=== PATIENT | male | born 1975 | race Caucasian/White ===

== ENCOUNTER 2019-11-27 11:50 | Emergency (ER) | payer BC, SELFPAY ==
[2019-11-27 12:14] VITALS: BP 138/88; PULSE 92; RESP 16; TEMP 37.1; O2SAT 97
--- NOTE | 2019-11-27 13:15 | ED.GENADULT ---
HPI - General Adult General Chief complaint: Upper Respiratory Infection Stated complaint: Flu like symptoms Time Seen by Provider: 11/27/19 13:16 Source: patient Mode of arrival: ambulatory Limitations: no limitations History of Present Illness HPI narrative: 44-year-old male patient presents to the [facility] with complaints of cold symptoms for the past 4 to 5 days. Patient states he has had a runny nose, stuffy nose, cough with some sputum at times. Low-grade fevers. Denies any chest pain, shortness of breath, abdominal pain, nausea, vomiting or diarrhea. Patient states he has been taking [id number] Tylenol, ibuprofen and Sudafed for symptoms. Patient denies getting a flu shot this year. Related Data Home Medications Medication Instructions Recorded Confirmed No Home Medications 11/27/19 11/27/19 Allergies Allergy/AdvReac Type Severity Reaction Status Date / Time No Known Allergies Allergy Verified 11/27/19 12:26 Review of Systems Review of Systems: Narrative: CONSTITUTIONAL: Positive subjective low-grade fever, body aches and chills, denies sweats. EYES: Denies visual changes, redness, or discharge. ENT: Positive rhinorrhea, congestion, denies sore throat, or otalgia. CARDIOVASCULAR: Denies chest pain, palpitations, or edema. RESPIRATORY: Positive cough, denies dyspnea. GASTROINTESTINAL: Denies abdominal pain, nausea, vomiting, or diarrhea. GENITOURINARY: Denies dysuria or hematuria. SKIN: Denies rash or itching. MUSCULOSKELETAL: Denies back pain, joint pain, or myalgia. NEUROLOGIC: Denies headache, numbness, or weakness. PSYCHIATRIC: Denies anxiety or depression. PMFSH Comments At the time of my signature I agree with nursing past medical history, surgical, social, and family history. There is no relevant family history pertinent to the presenting complaint. Exam Narrative: Exam Narrative: GENERAL: Well-appearing, well-nourished, and in no acute distress. HEAD: Normocephalic, atraumatic. EYES: PERRLA and EOMI. ENT: Nares clear, no rhinorrhea or epistaxis. Mucous membranes moist. NECK: Supple. No lymphadenopathy CHEST: Clear to auscultation. No respiratory distress. HEART: Regular rate and rhythm. No murmur heard. Normal peripheral pulses. ABDOMEN: Soft, nontender, nondistended, normal active bowel sounds. EXTREMITIES: Normal range of motion. No edema. SKIN: Warm, dry, no rash. NEURO: No focal deficits. Alert and oriented x3. Course Reevaluation(s) Reevaluation #1: Notify patient that he is positive today for influenza A. Discussed with patient that he unfortunately is outside the time to receive antiviral treatment. Discussed with him the treatment would be [id number] Tylenol, Motrin for pain fevers and body aches. Discussed with him he can also increase his fluid and get plenty rest take [id number] cough and cold medication for symptoms. Patient verbalized understanding denies any other questions or concerns at this time. Date: 11/27/19 Time: 13:42 Vital Signs Vital signs: Vital Signs Temperature 37.1 C 11/27/19 12:14 Pulse Rate 92 11/27/19 12:14 Respiratory Rate 16 11/27/19 12:14 Blood Pressure 138/88 11/27/19 12:14 Pulse Oximetry 97 11/27/19 12:14 Temperature 37.1 C 11/27/19 12:14 Pulse Rate 92 11/27/19 12:14 Respiratory Rate 16 11/27/19 12:14 Blood Pressure 138/88 11/27/19 12:14 Pulse Oximetry 97 11/27/19 12:14 Vital signs reviewed. The patient has been informed that they may have pre-hypertension or Hypertension based on a BP reading in the department. I recommend that the patient call the primary care provider listed on their discharge instructions or a physician of their choice this week to arrange follow up for further evaluation of possible pre-hypertension or Hypertension Medical Decision Making Differential Diagnosis Differential Diagnosis: Differential diagnosis: Allergic rhinitis, chronic sinusitis, tonsillitis, acute sinusiti
== END 2019-11-27 13:47 | disposition home or self-care (01) ==
PROVIDERS: Emergency Provider Nurse Practitioner Family
DX: J10.1 Influenza due to other identified influenza virus with other respiratory manifestations (principal)
CPT/HCPCS: 87804; 99212; G0463